=== PATIENT | female | born 1995 | race Caucasian/White ===

== ENCOUNTER 2018-01-09 18:56 | Emergency (ER) | payer MEDICAID, SELFPAY ==
[2018-01-09 18:58] VITALS: BP 126/78; PULSE 110; RESP 16; TEMP 36.8; O2SAT 100; BMI 32.1
[2018-01-09 19:40] LABS: Bacteria 0 SEEN /hpf (None Seen); Mucous, Urine 0 SEEN /hpf (<or=2+); Red Blood Cells-Urine 0 SEEN /hpf (0-5); White Blood Cells 0 SEEN /hpf (0-5)
[2018-01-09 19:42] LABS: Color, Urine Yellow (Yellow); Glucose, Dipstick Normal (Normal); Ketone-Dipstick Negative (Negative); Leukocyte Esterase-Dipstick Negative /ul (Negative); Nitrite-Dipstick Negative (Negative); Occult Blood-Urine Negative /ul (Negative); Protein-Dipstick Negative (Negative); Specific Gravity, Urine 1.025 (1.002-1.030); Urine Bilirubin Dipstick Negative (Negative); Urine Clarity Sl. Cloudy (Clear); Urine Urobilinogen Normal (Normal)
[2018-01-09 19:53] LABS: Amorphous Sediment 1+ URATE; Squamous Epithelial Cells - UA 0-5 SEEN /hpf (5-10)
[2018-01-09 19:54] LABS: Absolute Lymphocyte Count 2.25 X10^3/ul (0.83-4.51); Absolute Neutrophil Count 4.4 X10^3/uL (2.0-7.7); Basophil# 0.02 X10^3/uL; Basophil% 0.3 % (0-1); Eosinophil# 0.19 X10^3/uL; Eosinophils% 2.6 % (0-5); Hematocrit 38.6 % (37-47); Hemoglobin 12.5 g/dl (12.0-15.0); Lymphocyte # 2.25 X10^3/ul (4.0); Lymphocyte % 30.6 % (19-41); Mean Corp Hgb Conc 32.4 g/gl (32-36); Mean Corpuscular Hgb 29.5 pg (27.0-32.0); Mean Platelet Vol. 11.2 fl (6.2-12.0); Monocyte# 0.48 X10^3/uL; Monocyte% 6.5 % (0-10); Neutrophil # 4.38 X10^3/uL (2.7-7.7); Neutrophil % 59.6 % (47-70); Platelet Count 196 K/mm3 (150-450); RBC Distribution Width SD 46.1 fl (35.1-43.9); Red Blood Count 4.24 M/mm3 (4.2-5.4); White Blood Count 7.4 K/mm3 (4.4-11.0)
[2018-01-09 19:58] LABS: POSITIVE COUNT NO; POSITIVE DIFFERENTIAL NO; POSITIVE MORPHOLOGY NO
[2018-01-09 20:01] LABS: Anion Gap 8 (5-15); BUN 8 mg/dL (7-18); BUN/Creat Ratio 17.1 RATIO (10-20); Calcium,Total 8.8 mg/dL (8.5-10.1); Chloride 107 mmol/L (98-107); Creatinine, Serum 0.47 mg/dL (0.55-1.02); EST Glomerular Filtration Rate 180 mL/min (>60); Est Glom Filt Rate - Afr Amer 218 mL/min (>60); Estimated Creatinine Clearance 144.08 ml/min; Glucose 83 mg/dL (74-106); Potassium 3.3 mmol/L (3.5-5.1); Sodium Level 140 mmol/L (136-145)
[2018-01-09 21:35] VITALS: BP 110/64; PULSE 89; RESP 16; O2SAT 96
--- NOTE | 2018-01-09 22:49 | ED.DCSUM_ITS ---
- ER Visit Summary Date of Service: 01/09/18 Chief Complaint: Abdominal pain History of Present Illness: The patient is a 22 F who presents with abdominal pain that began today. Patient states the pain began diffuse across her abdomen but is now more painful in the right lower abdomen. Patient admits to some nausea but denies any vomiting. Patient denies any fevers or chills. Patient states the pain is worse when she bends forward and better when she lays flat. Patient denies any diarrhea or constipation. Patient denies any urinary complaints. Patient describes the pain is constant aching but stabbing at times. Physical Examination: Vital signs are stable except for a mild tachycardia of 110. Patient is in no acute distress. Oral mucosa is pink and moist. Neck is supple. There is good range of motion. Heart was regular rate and rhythm. Lungs are clear and equal bilaterally. There is good respiratory effort noted. Abdomen is soft. Bowel sounds are normal. There is some right lower quadrant tenderness. There is no rebound or guarding noted. There is mild pain with heel strike but there is no obturator sign. Cranial nerves II through XII are intact. There are no focal motor or sensory deficits noted. Remaining physical exam is within normal limits. Test Results: CBC, basic metabolic profile, and urinalysis were all within normal limits. Emergency Department Course and Treatment: heart tones were obtained and were 120. I was unable to get any imaging done to look for appendicitis. I contacted the patient's CLOTH INSPECTOR, Dr. Jeffrey who is covering for Dr. Chahal. He states that Dr. Chahal will be able to see the patient in the office tomorrow for reevaluation. Patient was instructed to call their office in the morning and tell them that she was seen in the emergency department tonight and needs a follow-up examination. Patient and her mother understood and were agreeable with the plan. All questions were answered. Disposition: Discharge home Impression: Right lower quadrant abdominal pain This note was generated with [employer] dictation software. It may contain incorrect words, spelling, and punctuation that were not noted in review of the chart prior to signing ED Disposition - Plan for ED Patient: Disposition: Home or Assisted Living Chief Complaint: Abd Pain Diagnosis: Right lower quadrant abdominal pain of unknown etiology Instructions: ED Abdominal Pain Appendx Poss Referrals: Care Physician,No Primary [Primary Care Provider] -
== END 2018-01-09 23:08 | disposition home or self-care (01) ==
PROVIDERS: Emergency Provider Emergency Medicine
DX: O26.892 Other specified pregnancy related conditions, second trimester (principal); R10.31 Right lower quadrant pain; Z3A.17 17 weeks gestation of pregnancy
CPT/HCPCS: 80048; 81001; 85025; 99283; A4216

== ENCOUNTER → 2018-03-25 16:07 | Outpatient (CLI) | payer MEDICAID, SELFPAY ==
[2018-03-25 17:19] LABS: Hematocrit 34.9 % (37-47); Hemoglobin 11.5 g/dl (12.0-15.0); Mean Corpuscular Hgb 29.9 pg (27.0-32.0); Mean Corpuscular Volume 90.9 fL (81-99); Mean Platelet Vol. 11.3 fl (6.2-12.0); Platelet Count 177 K/mm3 (150-450); RBC Distribution Width CV 13.3 % (11.6-14.6); Red Blood Count 3.84 M/mm3 (4.2-5.4); Scan Indicated on CBC? Y/N NO; White Blood Count 9.7 K/mm3 (4.4-11.0)
[2018-03-25 17:42] LABS: Glucose Challenge Gest 1H 50g 122 mg/dL (70-140)
== END ==
PROVIDERS: Visit Provider Obstetrics & Gynecology
DX: Z34.83 Encounter for supervision of other normal pregnancy, third trimester (principal)
CPT/HCPCS: 36415; 82950; 85027

== ENCOUNTER 2018-06-10 09:50 | Inpatient (IN) | payer MEDICAID, SELFPAY ==
[2018-06-06 09:15] VITALS: BMI 34.3
[2018-06-10] VITALS (14 sets, daily range): BP systolic 87–98; BP diastolic 42–59; PULSE 60–96; RESP 15–18; TEMP 36.1–36.7; O2SAT 95–100
[2018-06-10] MEDS: Lactated Ringers 1,000 ML 999 ML IV (11:00)
[2018-06-10 11:19] LABS: Absolute Lymphocyte Count 1.38 X10^3/ul (0.83-4.51); Absolute Neutrophil Count 6.4 X10^3/uL (2.0-7.7); Basophil# 0.02 X10^3/uL; Basophil% 0.2 % (0-1); Eosinophil# 0.05 X10^3/uL; Eosinophils% 0.6 % (0-5); Hemoglobin 10.8 g/dl (12.0-15.0); Lymphocyte # 1.38 X10^3/ul (4.0); Lymphocyte % 16.5 % (19-41); Mean Corp Hgb Conc 31.8 g/gl (32-36); Mean Corpuscular Hgb 26.1 pg (27.0-32.0); Mean Corpuscular Volume 82.1 fL (81-99); Mean Platelet Vol. 11.7 fl (6.2-12.0); Monocyte# 0.44 X10^3/uL; Monocyte% 5.3 % (0-10); Neutrophil # 6.39 X10^3/uL (2.7-7.7); Neutrophil % 76.6 % (47-70); Platelet Count 158 K/mm3 (150-450); RBC Distribution Width CV 15.3 % (11.6-14.6); RBC Distribution Width SD 45.1 fl (35.1-43.9); Red Blood Count 4.14 M/mm3 (4.2-5.4); White Blood Count 8.4 K/mm3 (4.4-11.0)
[2018-06-10 11:20] LABS: POSITIVE COUNT NO; POSITIVE DIFFERENTIAL NO; POSITIVE MORPHOLOGY NO
[2018-06-10 11:23] LABS: Prothrombin Time (Protime)PT. 13.3 SECONDS (11.7-14.9)
[2018-06-10 11:24] LABS: Partial Thromboplast Time 26.4 Seconds (24.1-36.2)
[2018-06-10] MEDS: Lactated Ringers 1,000 ML 150 ML IV (12:09)
[2018-06-10] MEDS: Cefazolin 2 GM in 0.9% Normal Saline 100 ML IV (12:48)
[2018-06-10] MEDS: Sodium Citrate/Citric Acid 30 ML UDC PO (12:49)
[2018-06-10] MEDS: Oxytocin 30 units/NS 500 ml 30 UNITS/500 ML IV.SOLN 167 UNITS IV (13:20)
--- NOTE | 2018-06-10 15:16 | CPS ---
nursing to start
[2018-06-10] MEDS: DiphenhydrAMINE 25 MG Capsule PO (16:07)
--- NOTE | 2018-06-10 17:30 | PCM.OP.BLANK ---
Operative Report Date of Procedure: 06/10/18 - repeat C section PROCEDURE: Repeat C section. Preoperative diagnosis: 39 wk EGA Prior C section, planned repeat C section Postop diagnosis: 39 wk EGA Prior C section, planned repeat C section Sterilization request. Anesthesia: Spinal, Haley Phipps CRNA Surgeon: Kristin Graham MD Cabin Furnishings Installer: LILIANA Colunga EBL 600 cc Complications: none Drains: Hatch draining clear yellow urine Fluids: replacement LR Findings: At amniotomy, clear fluid was noted. Falcon viable female in vertex presentation. Apgars 9/10, Baby weight: 8# 5 oz. There was a normal appearing uterus, fallopian tubes and ovaries bilaterally. PATH: Routine cord gases were sent. Narrative account: After the risks, benefits and alternatives of the procedure were reviewed with the patient, informed consent was obtained. The patient was taken to the Operating room with an IV running, and placed in a seated position on the operating table for placement of the spinal. Once the spinal had been administered, she was briefly frog-legged for Hatch catheter placement, and then repositioned to dorsal supine position with leftward displacement of the uterus, and prepped and draped in the usual sterile fashion. Once the spinal was deemed adequate, a Pfannenstiel skin incision was created using the knife (through the prior skin incision scar). The incision was carried down to the rectus fascia using the knife. The fascia was nicked in the midline. The fascial incision was extended bilaterally using curved Cherry scissors. The superior aspect of the fascial incision was grasped with Hiwot clamps and tented up and the underlying rectus abdominal muscles were dissected free. In a similar manner, the inferior aspect of the facial incision was grasped with Hiwot clamps tented up and the underlying rectus abdominal muscles were dissected free. The rectus abdominis muscles were in the midline and the peritoneum was identified and entered by blunt dissection high in the incision. The peritoneum was stretched laterally and a bladder blade was inserted. A bladder flap was created along the lower uterine segment with Metzenbaum scissors . The uterine incision was then created using Metzenbaum scissors. The operators fingertips were used to extend the uterine incision by blunt dissection in a caudad- cephalad orientation . Clear fluid was noted at amniotomy. The vertex was then delivered atraumatically through the incision. The OP and nares were bulb suctioned on the abdomen. The shoulders delivered easily with reduction of the anterior shoulder first The cord clamped x two and cut. And the infant was handed off to the nurse awaiting delivery after briefly showing her to her parents. The baby had a spontaneous, vigorous cry. The placenta was then delivered. The uterus was exteriorized and cleared of clots and debris . The uterine incision was repaired with 1 Vicryl in a running locked fashion. A second imbricating layer was then placed, using 1 Monocryl in running nonlocked fashion. Bovie cautery was used to treat any bleeding areas . Excellent hemostasis was noted. A small soft hematoma was noted at the R uterine angle. This area was oversewn with a figure of eight stitch of 1 vicryl. At this point the uterus was returned to the abdominal cavity. The gutters were cleared of clots and debris and the incision at the uterus was inspected. Excellent hemostasis was noted. The small hematoma at the R uterine angle remained soft and stable in size. The peritoneal edges and rectus abdominis muscles were reapproximated in the midline with vertical mattress stitches and figure of eight stitches of 1 Vicryl . Excellent hemostasis was noted at the subfascial space The fascia was closed in a running nonlocked fashion with a Stratofix. The Subcutaneous fatty tissue was Bovie cauterized as needed for hemostasis. This layer was then reapproximated with a single layer of running 3-0 Vicryl to eliminate space. The skin edges were closed in a Subcuticular stitch of 4-0 Monocryl. The incision was cleansed. Cavilon, Steristrips, and a Mepilex dressing were applied to the skin . The patient was then transferred to the recovery room bed in stable condition after tolerating the procedure well. Sponge, lap, needle and instrument counts correct times two. Medications given preop and intraoperatively included: Ancef 2 gm given manager web application to the operating room. The patient also received Pitocin given IV after cord clamp, and Toradol 30 mg IV times one. For a complete listing of medications given preop and intraoperatively, please see the anesthesia record.
--- NOTE | 2018-06-10 17:39 | OP.PCM_ITS ---
Operative Report Date of Procedure: 06/10/18 - repeat C section PROCEDURE: Repeat C section. Preoperative diagnosis: 39 wk EGA Prior C section, planned repeat C section Postop diagnosis: 39 wk EGA Prior C section, planned repeat C section Sterilization request. Anesthesia: Spinal, Haley Phipps CRNA Surgeon: Kristin Graham MD Bottom Finisher: LILIANA Colunga EBL 600 cc Complications: none Drains: Hatch draining clear yellow urine Fluids: replacement LR Findings: At amniotomy, clear fluid was noted. Falcon viable female in vertex presentation. Apgars 9/10, Baby weight: 8# 5 oz. There was a normal appearing uterus, fallopian tubes and ovaries bilaterally. PATH: Routine cord gases were sent. Narrative account: After the risks, benefits and alternatives of the procedure were reviewed with the patient, informed consent was obtained. The patient was taken to the Operating room with an IV running, and placed in a seated position on the operating table for placement of the spinal. Once the spinal had been administered, she was briefly frog-legged for Hatch catheter placement, and then repositioned to dorsal supine position with leftward displacement of the uterus, and prepped and draped in the usual sterile fashion. Once the spinal was deemed adequate, a Pfannenstiel skin incision was created using the knife ( through the prior skin incision scar). The incision was carried down to the rectus fascia using the knife. The fascia was nicked in the midline. The fascial incision was extended bilaterally using curved Cherry scissors. The superior aspect of the fascial incision was grasped with Hiwot clamps and tented up and the underlying rectus abdominal muscles were dissected free. In a similar manner, the inferior aspect of the facial incision was grasped with Hiwot clamps tented up and the underlying rectus abdominal muscles were dissected free. The rectus abdominis muscles were in the midline and the peritoneum was identified and entered by blunt dissection high in the incision. The peritoneum was stretched laterally and a bladder blade was inserted. A bladder flap was created along the lower uterine segment with Metzenbaum scissors . The uterine incision was then created using Metzenbaum scissors. The operators fingertips were used to extend the uterine incision by blunt dissection in a caudad- cephalad orientation . Clear fluid was noted at amniotomy. The vertex was then delivered atraumatically through the incision. The OP and nares were bulb suctioned on the abdomen. The shoulders delivered easily with reduction of the anterior shoulder first The cord clamped x two and cut. And the was handed off to the nurse awaiting delivery after briefly showing her to her parents. The baby had a spontaneous, vigorous cry. The placenta was then delivered. The uterus was exteriorized and cleared of clots and debris . The uterine incision was repaired with 1 Vicryl in a running locked fashion. A second imbricating layer was then placed, using 1 Monocryl in running nonlocked fashion. Bovie cautery was used to treat any bleeding areas . Excellent hemostasis was noted. A small soft hematoma was noted at the R uterine angle. This area was oversewn with a figure of eight stitch of 1 vicryl. At this point the uterus was returned to the abdominal cavity. The gutters were cleared of clots and debris and the incision at the uterus was inspected. Excellent hemostasis was noted. The small hematoma at the R uterine angle remained soft and stable in size. The peritoneal edges and rectus abdominis muscles were reapproximated in the midline with vertical mattress stitches and figure of eight stitches of 1 Vicryl . Excellent hemostasis was noted at the subfascial space The fascia was closed in a running nonlocked fashion with a Stratofix. The Subcutaneous fatty tissue was Bovie cauterized as needed for hemostasis. This layer was then reapproximated with a single layer of running 3-0 Vicryl to eliminate space. The skin edges were closed in a Subcuticular stitch of 4-0 Monocryl. The incision was cleansed. Cavilon, Steristrips, and a Mepilex dressing were applied to the skin . The patient was then transferred to the recovery room bed in stable condition after tolerating the procedure well. Sponge, lap, needle and instrument counts correct times two. Medications given preop and intraoperatively included: Ancef 2 gm given supervisor functional testing to the operating room. The patient also received Pitocin given IV after cord clamp, and Toradol 30 mg IV times one. For a complete listing of medications given preop and intraoperatively, please see the anesthesia record.
--- NOTE | 2018-06-10 17:40 | PCM.DCCSEC ---
Discharge Diet: No Restrictions Discharge Activity: May not drive while taking narcotic pain medications., May Shower, May Take a Tub Bath Return to work on:: 08/05/18 May resume sexual activity in: 4-6 weeks Lifting Restrictions: 20 pounds Additional Activity Instructions:: Nothing in the vagina for 4-6 weeks. You may return to work/school in 6 weeks. Change Dressing in (Days):: 4 Remove Dressing in (days):: 4 Cleanse incision/area with: Soap & Water, Keep Dressing Clean & Dry Additional Instructions: If you experience any of the following, contact your healthcare provider. Bleeding that soaks a pad every hour for 2 hours Fever 100.4 or higher Unrelieved incision or abdominal pain Swelling, redness, discharge or bleeding from your incision Problems urinating (including inability to urinate or burning while urinating). Visual changes Severe headache Flu-like symptoms Pain or redness in one of both of your breasts Pain, warmth, tenderness or swelling in your legs, especially the calf area Frequent nausea and vomiting Symptoms of depression or anxiety If you experience any of the following, call 911 or go to the nearest Emergency Room. Chest pain Problems breathing Seizure activity Partial or complete paralysis of a body part, slurred speech, weakness or drooping of the face, or a sudden inability to walk or hold your balance Allergies/Adverse Reactions: Allergies Penicillins [PCN] Allergy (Verified 06/06/18 09:30) Hives Medications to take at Discharge Pnv95/Ferrous Fumarate/FA [ Formula] 1 each PO DAILY 01/09/18 Acetaminophen [Tylenol] 1,000 mg PO Q8H PRN tablet 06/10/18 Naproxen [Naprosyn] 250 - 500 mg PO Q8H PRN PRN #30 tab 06/10/18 Oxycodone [Oxyir] 5 - 10 mg PO Q4H PRN PRN 7 Days #28 tab 06/10/18 Senna/Docusate Sodium [Senokot-S] 1 tab PO BID PRN #30 tab 06/10/18 The following prescriptions were given: Oxycodone [Oxyir] 5 - 10 mg PO Q4H PRN PRN 7 Days #28 tab PRN Reason: Mod-Severe Pain (-08/14) Naproxen [Naprosyn] 250 - 500 mg PO Q8H PRN PRN #30 tab PRN Reason: Mild Pain (-01/12) Senna/Docusate Sodium [Senokot-S] 1 tab PO BID PRN #30 tab PRN Reason: Constipation Follow-Up: Call to make an appointment with your doctor for an incision check in 1-2 weeks. You will also need a 6 week post- follow up appointment. Test results from this visit will be discussed in further detail at your follow-up appointment, if applicable. Please Follow Up With: Mahendra Chahal MD - [phone] When: Call to make an appointment for an incision check in 2 weeks. Primary Care Physician: Care Physician,No Primary [Primary Care Provider] - Proposed Discharge Date: 06/12/18
--- NOTE | 2018-06-10 17:45 | DCINST_ITS ---
Discharge Diet: No Restrictions Discharge Activity: May not drive while taking narcotic pain medications., May Shower, May Take a Tub Bath Return to work on:: 08/05/18 May resume sexual activity in: 4-6 weeks Lifting Restrictions: 20 pounds Additional Activity Instructions:: Nothing in the vagina for 4-6 weeks. You may return to work/school in 6 weeks. Change Dressing in (Days):: 4 Remove Dressing in (days):: 4 Cleanse incision/area with: Soap & Water, Keep Dressing Clean & Dry Additional Instructions: If you experience any of the following, contact your healthcare provider. * Bleeding that soaks a pad every hour for 2 hours * Fever 100.4 or higher * Unrelieved incision or abdominal pain * Swelling, redness, discharge or bleeding from your incision * Problems urinating (including inability to urinate or burning while urinating) . * Visual changes * Severe headache * Flu-like symptoms * Pain or redness in one of both of your breasts * Pain, warmth, tenderness or swelling in your legs, especially the calf area * Frequent nausea and vomiting * Symptoms of depression or anxiety If you experience any of the following, call 911 or go to the nearest Emergency Room. * Chest pain * Problems breathing * Seizure activity * Partial or complete paralysis of a body part, slurred speech, weakness or drooping of the face, or a sudden inability to walk or hold your balance Allergies/Adverse Reactions: Allergies Penicillins [PCN] Allergy (Verified 06/06/18 09:30) Hives Medications to take at Discharge Pnv95/Ferrous Fumarate/FA [ Formula] 1 each PO DAILY 01/09/18 Acetaminophen [Tylenol] 1,000 mg PO Q8H PRN tablet 06/10/18 Naproxen [Naprosyn] 250 - 500 mg PO Q8H PRN PRN #30 tab 06/10/18 Oxycodone [Oxyir] 5 - 10 mg PO Q4H PRN PRN 7 Days #28 tab 06/10/18 Senna/Docusate Sodium [Senokot-S] 1 tab PO BID PRN #30 tab 06/10/18 The following prescriptions were given: Oxycodone [Oxyir] 5 - 10 mg PO Q4H PRN PRN 7 Days #28 tab PRN Reason: Mod-Severe Pain (-10/10) Naproxen [Naprosyn] 250 - 500 mg PO Q8H PRN PRN #30 tab PRN Reason: Mild Pain (1-01/12) Senna/Docusate Sodium [Senokot-S] 1 tab PO BID PRN #30 tab PRN Reason: Constipation Follow-Up: Call to make an appointment with your doctor for an incision check in 1-2 weeks. You will also need a 6 week post- follow up appointment. Test results from this visit will be discussed in further detail at your follow- up appointment, if applicable. Please Follow Up With: Mahendra Chahal MD - [phone] When: Call to make an appointment for an incision check in 2 weeks. Primary Care Physician: Care Physician,No Primary [Primary Care Provider] - Proposed Discharge Date: 06/12/18
[2018-06-10] MEDS: Ketorolac 30 MG/ML Syringe IV (20:26)
[2018-06-10] MEDS: 0.9% Saline Lock 10 ML Syringe IV (20:27)
[2018-06-11] VITALS (10 sets, daily range): BP systolic 91–111; BP diastolic 46–64; PULSE 64–84; RESP 16–18; TEMP 36.3–36.8; O2SAT 95–98
[2018-06-11] MEDS: Ketorolac 30 MG/ML Syringe IV ×4 (02:25→21:55)
[2018-06-11] MEDS: Lactated Ringers 1,000 ML 100 ML IV (02:26)
[2018-06-11] MEDS: DiphenhydrAMINE 25 MG Capsule PO (02:41)
[2018-06-11 06:35] LABS: Hematocrit 30.7 % (37-47); Hemoglobin 9.6 g/dl (12.0-15.0); Mean Corp Hgb Conc 31.3 g/gl (32-36); Mean Corpuscular Hgb 25.9 pg (27.0-32.0); Mean Corpuscular Volume 82.7 fL (81-99); Mean Platelet Vol. 12.2 fl (6.2-12.0); Platelet Count 150 K/mm3 (150-450); RBC Distribution Width CV 15.1 % (11.6-14.6); RBC Distribution Width SD 45.1 fl (35.1-43.9); Red Blood Count 3.71 M/mm3 (4.2-5.4); White Blood Count 9.7 K/mm3 (4.4-11.0)
[2018-06-11 06:47] LABS: Scan Indicated on CBC? Y/N NO
--- NOTE | 2018-06-11 08:05 | PCM.PN.OB ---
Subjective: POD#1 repeat C/S Doing well. Pain control adequate. Breast feeding. No concerns voiced. Objective: Nursing baby in bed - Physical Exam General: Alert, Oriented x3, Cooperative, No apparent distress Neurological: Cranial nerves II-XII grossly intact Psych/Mental Status: Normal Affect Vital Signs Temp Pulse Resp BP Pulse Ox 97.5 F L 77 16 91/51 L 97 06/11/18 05:58 06/11/18 05:58 06/11/18 05:58 06/11/18 05:58 06/11/18 05:58 Oxygen Delivery Method Room Air Weight: 85.2 kg Body Mass Index (BMI) 34.3 Intake and Output for Last 24 Hours 06/09/18 06/10/18 06/11/18 23:59 23:59 23:59 Intake Total 186 / 186 2305 / 2305 Output Total 150 / 150 800 / 800 Balance 36 / 36 1505 / 1505 Laboratory Tests Past 24 Hrs 06/10/18 06/10/18 06/10/18 11:00 11:00 11:00 WBC 8.4 RBC 4.14 L Hgb 10.8 L Hct 34.0 L MCV 82.1 MCH 26.1 L MCHC 31.8 L RDW 15.3 H RDW Differential 45.1 H Plt Count 158 MPV 11.7 Immature Gran % (Auto) 0.800 Neut % (Auto) 76.6 H Lymph % (Auto) 16.5 L [place] % (Auto) 5.3 Eos % (Auto) 0.6 Baso % (Auto) 0.2 Absolute Neuts (auto) 6.4 Absolute Lymphs (auto) 1.38 Total Counted Not Reportable PT 13.3 INR 1.0 APTT 26.4 Blood Type A POSITIVE Antibody Screen NEGATIVE 06/11/18 05:50 WBC 9.7 RBC 3.71 L Hgb 9.6 L Hct 30.7 L MCV 82.7 MCH 25.9 L MCHC 31.3 L RDW 15.1 H RDW Differential 45.1 H Plt Count 150 MPV 12.2 H Immature Gran % (Auto) Neut % (Auto) Lymph % (Auto) [place] % (Auto) Eos % (Auto) Baso % (Auto) Absolute Neuts (auto) Absolute Lymphs (auto) Total Counted PT INR APTT Blood Type Antibody Screen Medical Necessity - Tobacco Use Smoking Status: Never smoker Assessment/Plan POD#1 repeat C/S Stable postop . Inc diet and activity as tolerated. Begin po meds. S/L IV . Discontinue pineda for voiding trial Iron deficiency anemia with superimposed acute blood loss anemia. Begin iron daily. Continue care.
[2018-06-11] MEDS: 0.9% Saline Lock 10 ML Syringe IV ×3 (13:16→21:56)
[2018-06-11] MEDS: Senna/Docusate Sodium 1 Tablet PO (15:39)
[2018-06-12] MEDS: Ketorolac 30 MG/ML Syringe IV (02:36)
[2018-06-12] MEDS: 0.9% Saline Lock 10 ML Syringe IV (02:36)
[2018-06-12 02:44] VITALS: BP 110/62; PULSE 73; RESP 16; TEMP 36.4; O2SAT 97
--- NOTE | 2018-06-12 07:37 | PCM.PN.OB ---
Subjective: POD#2 Repeat C/S. Doing well and would like to go home today if able. Pain control adequate. Nursing well. no concerns . Has f/u appt in ofc for next week. Objective: sitting up in chair, holding baby. Dad then takes baby for exam. - Physical Exam General: Alert, Oriented x3, Cooperative, No apparent distress HEENT: Atraumatic Neck: Supple Abdomen: Soft - Fundus firm NT at umbilicus, sitting Skin: Incision - mepilex with two small spots of shadow drainage only. dry intact otherwise no erythema. Neurological: Cranial nerves II-XII grossly intact Psych/Mental Status: Normal Affect Vital Signs Temp Pulse Resp BP Pulse Ox 97.5 F L 73 16 110/62 97 06/12/18 02:44 06/12/18 02:44 06/12/18 02:44 06/12/18 02:44 06/12/18 02:44 Oxygen Delivery Method Room Air Weight: 85.2 kg Body Mass Index (BMI) 34.3 Intake and Output for Last 24 Hours //18 06/11/18 06/12/18 23:59 23:59 23:59 Intake Total 186 / 186 2305 / 2305 Output Total 150 / 150 1950 / 1950 Balance 36 / 36 355 / 355 Medical Necessity - Tobacco Use Smoking Status: Never smoker Assessment/Plan POD#2 repeat C/S Stable postop . requesting dischg later today if baby is released. Continue care. D/C home. RTO as scheduled for postop check up.
[2018-06-12] MEDS: Senna/Docusate Sodium 1 Tablet PO (07:55)
[2018-06-12] MEDS: Naproxen 250 MG Tablet PO (07:55)
[2018-06-12] MEDS: Ferrous Sulfate 325 MG Tablet PO (07:56)
[2018-06-12 08:17] VITALS: BP 104/70; PULSE 86; RESP 20; TEMP 35.9; O2SAT 98
[2018-06-12] MEDS: Prenatal Vits Tablet 1 TABLET PO (11:42)
[2018-06-12 11:57] VITALS: BP 106/67; PULSE 70; RESP 20; TEMP 36.3; O2SAT 97
--- NOTE | 2018-06-12 14:59 | DS.PCM_ITS ---
Discharge Date and Diagnosis Date of Admission: 06/10/18 - planned repeat C/s at 39 wks Date of Discharge: 06/12/18 - S/P repeat C section Hospital Course and Treatment Operations: - - Repeat C section Summary of Care Provided: The patient is a 22 year old female at 39 wk EGA presents for repeat C section. Admitted on 06/10/18 for repeat C section. Procedure uncomplicated with EBL 600 cc. Delivered of a tidwell viable female. Ap 9/10 Weight: 8 # 5 oz. Postoperative course uneventful Iron deficiency anemia complicated by acte blood loss anemia. Hgb 10.8 g/dl preop and 9.6 g/dl postop day #1 Sent home on POD#2 per patient request. Exam benign. AVSS. Tolerating diet, Voiding well. Pain control adequate Breast feeding. RTO in 1-2 wk for postop incision check as planned. Discharge Diet: No Restrictions Discharge Activity: May not drive while taking narcotic pain medications., May Shower, May Take a Tub Bath Return to work on:: 08/05/18 May resume sexual activity in: 4-6 weeks Additional Activity Instructions:: Nothing in the vagina for 4-6 weeks. You may return to work/school in 6 weeks. Change Dressing in (Days):: 4 Remove Dressing in (days):: 4 Cleanse incision/area with: Soap & Water, Keep Dressing Clean & Dry Home Medications: Medications to take at Discharge Pnv95/Ferrous Fumarate/FA [ Formula] 1 each PO DAILY 01/09/18 Acetaminophen [Tylenol] 1,000 mg PO Q8H PRN tablet 06/10/18 Naproxen [Naprosyn] 250 - 500 mg PO Q8H PRN PRN #30 tab 06/10/18 Oxycodone [Oxyir] 5 - 10 mg PO Q4H PRN PRN 7 Days #28 tab 06/10/18 Senna/Docusate Sodium [Senokot-S] 1 tab PO BID PRN #30 tab 06/10/18 Ferrous Sulfate 325 mg PO DAILY@0800 #30 tab 06/11/18 Following Prescrptions Were Given to Patient: Oxycodone [Oxyir] 5 - 10 mg PO Q4H PRN PRN 7 Days #28 tab PRN Reason: Mod-Severe Pain (4-08/14) Naproxen [Naprosyn] 250 - 500 mg PO Q8H PRN PRN #30 tab PRN Reason: Mild Pain (-01/12) Ferrous Sulfate 325 mg PO DAILY@0800 #30 tab Senna/Docusate Sodium [Senokot-S] 1 tab PO BID PRN #30 tab PRN Reason: Constipation Primary Care Physician: Care Physician,No Primary [Primary Care Provider] - Please Follow Up With: Mahendra Chahal MD When: Call to make an appointment for an incision check in 2 weeks. Medical Necessity - Tobacco Use Smoking Status: Never smoker Meaningful Use Info Meaningful Use Diagnoses (Choose all that apply): None applicable
--- NOTE | 2018-06-18 16:40 | NURSING ---
follow up phone call done. baby well and gaining weight. baby has echo scheduled for next week to check on murmur. mother said everything was great for her stay. mentioned Amber Barron was great.
== END 2018-06-12 14:50 | disposition home or self-care (01) | DRG 370 ==
PROVIDERS: Admitting Provider Obstetrics & Gynecology; Visit Provider Obstetrics & Gynecology
PROC: 10D00Z1 Extraction of Products of Conception, Low, Open Approach (ICD-10-PCS; CPT 59514; principal; 2018-06-10 11:45)
DX: O34.219 Maternal care for unspecified type scar from previous cesarean delivery (principal); O99.02 Anemia complicating childbirth; D62 Acute posthemorrhagic anemia; Z3A.39 39 weeks gestation of pregnancy; Z37.0 Single live birth
CPT/HCPCS: 85025; 85027; 85610; 85730; 86850; 86900; 99218; J7120; A4216; G0378; J2405

== ENCOUNTER → 2023-02-02 | Outpatient (CLI) | payer OTHER, SELFPAY ==
[2023-02-02 14:23] LABS: Absolute Lymphocyte Count 1.46 X10^3/uL (0.83-4.51); Absolute Neutrophil Count 5.2 X10^3/uL (2.0-7.7); Basophil# 0.04 X10^3/uL; Basophil% 0.6 % (0-1); Eosinophil# 0.05 X10^3/uL; Eosinophils% 0.7 % (0-5); Hematocrit 43.1 % (37-47); Hemoglobin 14.2 g/dL (12.0-15.0); Lymphocyte # 1.46 X10^3/ul (0.83-4.51); Lymphocyte % 20.3 % (19-41); Mean Corp Hgb Conc 32.9 g/dL (32-36); Mean Corpuscular Hgb 29.4 pg (27.0-32.0); Mean Corpuscular Volume 89.2 fL (81-99); Mean Platelet Vol. 11.2 fl (6.2-12.0); Monocyte% 5.6 % (0-10); NRBC Flagged by Analyzer 0 % (0-5); Neutrophil # 5.21 X10^3/uL (2.7-7.7); Neutrophil % 72.5 % (47-70); Platelet Count 240 K/mm3 (150-450); RBC Distribution Width CV 13.5 % (11.6-14.6); RBC Distribution Width SD 43.8 fl (35.1-43.9); Red Blood Count 4.83 M/mm3 (4.2-5.4); White Blood Count 7.2 K/mm3 (4.4-11.0)
[2023-02-02 14:43] LABS: Hemoglobin A1c 5.1 % (3.8-5.6)
[2023-02-02 14:54] LABS: hCG Titer Quant., Serum < 1 mIU/mL (1-3)
[2023-02-02 15:04] LABS: Estradiol 86.8 pg/mL; Follicle Stimulating Hormone 1.7 mIU/mL; Luteinizing Hormone 2.6 mIU/mL; Prolactin 7.8 ng/mL; T4 Free Direct 1.16 ng/dL (0.76-1.46); Thyroid Stim Hormone (TSH) 0.82 uIU/mL (0.358-3.74)
[2023-02-07 13:18] LABS: Testosterone, Free 1.27 ng/dL (0.10-0.85); Testosterone, Total 53 ng/dL (13-71)
[2023-02-09 20:54] LABS: HPV Reflexed? NOT INDICATED
== END | disposition home or self-care (01) ==
PROVIDERS: Visit Provider Obstetrics & Gynecology
DX: Z12.4 Encounter for screening for malignant neoplasm of cervix (principal); N93.9 Abnormal uterine and vaginal bleeding, unspecified
CPT/HCPCS: 36415; 82670; 83001; 83002; 83036; 84146; 84402; 84403; 84439; 84443; 84702; 85025; 88175; G0145